=== PATIENT | female | born 1980 | race Hispanic/Latino ===

== ENCOUNTER 2022-03-19 04:30 | Emergency (ER) | payer OTHER ==
[~2022-03-19] VITALS: Ht 160 cm; Wt 75.7 kg
[2022-03-19] MEDS: IBUPROFEN 600 MG TABLET PO ONE (05:07)
[2022-03-19] MEDS: DIAZEPAM 2 MG TAB PO ONE (05:08)
[2022-03-19 05:52] VITALS: BP 107/57
== END 2022-03-19 06:32 | disposition home or self-care (01) ==
LOC: EDH 04:30
DX: F41.9 Anxiety disorder, unspecified (principal); M54.2 Cervicalgia; F20.9 Schizophrenia, unspecified; I10 Essential (primary) hypertension; F17.200 Nicotine dependence, unspecified, uncomplicated; Z59.00 Homelessness unspecified; Z79.1 Long term (current) use of non-steroidal anti-inflammatories (NSAID)